=== PATIENT | female | born 1970 ===

== ENCOUNTER 2017-11-10 09:00 | Inpatient (IN) | payer OTHER ==
[~2017-11-10] VITALS: Ht 157.5 cm; Wt 93.4 kg
[2017-11-10] MEDS ORDERED: LOSARTAN-HCTZ1 EAC1 PO (10:19)
[2017-11-10] MEDS ORDERED: TIROSINT50 MCG PO (10:19)
[2017-11-18] MEDS ORDERED: OXYC1TAB9 PO (06:27)
[2017-11-18] MEDS ORDERED: LEVSIN/SL0.125 MG PO (06:27)
== END 2017-11-18 10:06 | DRG 743 ==
LOC: SURG 09:00 → OB/GYN 11-16 08:12 → O/R 11-16 08:12 → SURG 11-16 08:45 → OB/GYN 11-16 17:54
PROVIDERS: Obstetrics & Gynecology Gynecology
PROC: 0UT70ZZ Resection of Bilateral Fallopian Tubes, Open Approach (ICD-10-PCS; 2017-11-16)
PROC: 0UT90ZZ Resection of Uterus, Open Approach (ICD-10-PCS; principal; 2017-11-16 08:45)
DX: D25.1 Intramural leiomyoma of uterus (principal); D25.0 Submucous leiomyoma of uterus; N92.0 Excessive and frequent menstruation with regular cycle

== ENCOUNTER 2020-03-12 07:59 | Outpatient (CLI) | payer OTHER ==
[~2020-03-12 07:59] MED LIST: LEVSIN/SL0.125 MG PO; LOSARTAN-HCTZ1 EAC1 PO; OXYC1TAB9 PO; TIROSINT50 MCG PO
== END 2020-03-12 08:01 | disposition home or self-care (01) ==
LOC: SONOGRAMA 07:59
PROVIDERS: ATTEND Pathology Anatomic Pathology & Clinical Pathology
DX: E04.2 Nontoxic multinodular goiter (principal)